=== PATIENT | female | born 1950 | race Caucasian/White ===

== ENCOUNTER 2021-04-01 06:42 | Day surgery (SDC) | payer MEDICARE ==
[2021-04-01] MEDS ORDERED: Propofol 200 MG/20 ML SDV ONE (07:13)
[2021-04-01] MEDS ORDERED: Midazolam 1 MG/ML 2 ML SDV ONE (07:14)
[2021-04-01] MEDS ORDERED: fentaNYL 100 MCG/2 ML SDV ONE (07:14)
[2021-04-01] MEDS ORDERED: Sodium Chloride 0.9% 1,000 ML IV SCH (07:30)
--- NOTE | 2021-04-01 16:40 | OR ---
DATE OF PROCEDURE: 04/01/2021 SURGEON: Osman Mills MD PROCEDURE: Colonoscopy. FINDINGS: 1. Diverticulosis, moderate, mostly limited to sigmoid colon. 2. Sigmoid colon polyp, approximately 5 mm, completely removed using cold biopsy forceps. COMPLICATIONS: None. COMPUTER LABORATORY TECHNICIAN: None. ANESTHESIA: MAC. PREOPERATIVE DIAGNOSIS: Screening colonoscopy. POSTOPERATIVE DIAGNOSIS: Screening colonoscopy. RISKS: Risks, benefits, alternatives, and limitations including, but not limited to infection, bleeding, perforation, false positives, false negatives were explained to the patient and she wished to proceed. PROCEDURE IN DETAIL: The patient was placed in left lateral decubitus position. Digital rectal exam was performed without abnormality. Scope was introduced and advanced atraumatically to the ileocecal valve. A photo was taken of this. Scope was brought back to the ascending, transverse, descending colon, and retroflexed. No evidence of old or new blood. No masses. No colitis. Greater than 8 minutes was spent removing the scope. The prep was acceptable. Approximately 85% of the luminal surface could be seen. The solid and liquid stool remaining. No abnormalities on retroflexion. The patient tolerated the procedure well. Osman Mills MD /[id number]
== END 2021-04-01 11:10 | disposition home or self-care (01) ==
LOC: JP.SDS 06:42
PROVIDERS: ATTEND Surgery
DX: Z12.11 Encounter for screening for malignant neoplasm of colon (principal); K63.5 Polyp of colon; Z88.2 Allergy status to sulfonamides
CPT/HCPCS: 45380; 88305; J2250; J2704; J3010; J7030

== ENCOUNTER 2022-03-22 11:39 | Emergency (ER) | payer MEDICARE ==
[2022-03-22 12:52] LABS: ESTIMATED GFR > 60 (>60)
[2022-03-22] MEDS ORDERED: Sodium Chloride 0.9% 75 ML IV SCH (13:30)
[2022-03-22] MEDS ORDERED: Iopamidol 612 MG/ML 100 ML Bottle IV SCH (13:30)
[2022-03-22] MEDS ORDERED: metroNIDAZOLE/Normal Saline 500 MG in Premix Bag 1 BAG IV ONE (14:50)
[2022-03-22] MEDS ORDERED: Levofloxacin/Dextrose 5%-Water 750 MG in Premix Bag 1 BAG IV ONE (14:50)
[2022-03-22] MEDS ORDERED: Sodium Chloride 0.9% 1,000 ML IV SCH (15:00)
== END 2022-03-22 17:21 | disposition home or self-care (01) ==
LOC: JP.ED 11:39
DX: K57.32 Diverticulitis of large intestine without perforation or abscess without bleeding (principal); E86.0 Dehydration; E78.00 Pure hypercholesterolemia, unspecified; K21.9 Gastro-esophageal reflux disease without esophagitis; Z88.2 Allergy status to sulfonamides; Z79.899 Other long term (current) drug therapy; Z87.891 Personal history of nicotine dependence
CPT/HCPCS: 36415; 74177; 80053; 81001; 85025; 86140; 96365; 96366; 96368; 99283; 99284; J1956; J3490; J7030; Q9967

== ENCOUNTER 2022-12-18 11:14 | Emergency (ER) | payer MEDICARE ==
[2022-12-18] MEDS ORDERED: fentaNYL 100 MCG/2 ML SDV IVPUSH ONE ×2 (12:42→16:00)
[2022-12-18] MEDS ORDERED: Sodium Chloride 0.9% 10 ML Syringe FLUSH PRN ×2 (12:42→12:55)
[2022-12-18] MEDS ORDERED: Sodium Chloride 0.9% 1,000 ML IV STA (12:42)
[2022-12-18] MEDS ORDERED: Iopamidol 612 MG/ML 100 ML Bottle IV PRN (12:55)
[2022-12-18] MEDS ORDERED: Sodium Chloride 0.9% 50 ML IV ONE (12:55)
[2022-12-18 13:17] LABS: ESTIMATED GFR 77 mL/min (>60); TROPONIN I HIGH SENSITIVITY 5.1 pg/mL (<=60.3)
== END 2022-12-18 16:22 | disposition home or self-care (01) ==
LOC: JP.ED 11:14
DX: K57.32 Diverticulitis of large intestine without perforation or abscess without bleeding (principal); E86.0 Dehydration; K21.9 Gastro-esophageal reflux disease without esophagitis; Z88.2 Allergy status to sulfonamides; Z79.899 Other long term (current) drug therapy
CPT/HCPCS: 36415; 74177; 80053; 81001; 83605; 83690; 84484; 85025; 96361; 96374; 96376; 99284; J3010; J3490; J7030; Q9967

== ENCOUNTER 2025-01-18 07:18 | Day surgery (SDC) | payer MEDICARE ==
[2025-01-18] MEDS ORDERED: fentaNYL 50 MCG/ML SDV ONE (07:21)
[2025-01-18] MEDS ORDERED: Propofol 200 MG/20 ML SDV ONE (07:21)
[2025-01-18] MEDS: Lactated Ringers 1,000 ML IV SCH (08:32)
== END 2025-01-18 11:33 | disposition home or self-care (01) ==
LOC: JP.SDS 07:18
PROVIDERS: ATTEND Surgery
DX: R13.10 Dysphagia, unspecified (principal); K44.9 Diaphragmatic hernia without obstruction or gangrene; I85.00 Esophageal varices without bleeding; K21.9 Gastro-esophageal reflux disease without esophagitis; K22.89 Other specified disease of esophagus; Z88.2 Allergy status to sulfonamides
CPT/HCPCS: 00731-QZ; 88305; J2704; J3010; J7120

== ENCOUNTER 2025-04-20 23:32 | Observation (INO) | payer MEDICARE ==
[2025-04-21 00:20] LABS: BASOPHILS PERCENT AUTO 0.3 % (0.1-1.3); EOSINOPHILS ABSOLUTE AUTO 0.03 K/uL (0.00-0.40); EOSINOPHILS PERCENT AUTO 0.4 % (0.0-5.4); IMMATURE GRAN ABSOLUTE AUTO 0.04 K/uL (0.00-0.23); IMMATURE GRAN PERCENT AUTO 0.5 % (0.0-0.7); LYMPHOCYTES ABSOLUTE AUTO 0.77 K/uL (0.8-3.3); LYMPHOCYTES PERCENT AUTO 9.7 % (11.4-47.7); MONOCYTES ABSOLUTE AUTO 0.47 K/uL (0.20-0.90); MONOCYTES PERCENT AUTO 5.9 % (3.3-12.6); NEUTROPHILS ABSOLUTE AUTO 6.58 K/uL (1.0-7.6); NEUTROPHILS PERCENT AUTO 83.2 % (40.0-78.1); PLATELET COUNT,PLT 84 K/uL (130-375); RED BLOOD CELL COUNT 3.71 M/uL (3.77-5.24); WHITE BLOOD CELL COUNT,WBC 7.9 K/uL (3.2-11.0)
[2025-04-21 00:23] LABS: BASOPHILS ABSOLUTE AUTO 0.02 K/uL (0.00-0.10)
[2025-04-21] MEDS: Lidocaine 1% with EPINEPHrine 1:100,000 20 ML MDV INJECT ONE (00:31)
[2025-04-21 00:44] LABS: A/G RATIO 1.3 (1.2-2.2); ALANINE AMINOTRANSFERASE,ALT 20 U/L (12-78); ASPARTATE AMNIOTRANSFERASE,AST 17 U/L (15-37); BILIRUBIN TOTAL 0.3 mg/dL (0.2-1.0); BLOOD UREA NITROGEN,BUN 35 mg/dL (7-18); CARBON DIOXIDE,CO2 26 mmol/L (21-32); CHLORIDE,CL 109 mmol/L (100-108); CREATININE 1.0 mg/dL (0.6-1.0); EST CRCL DRUG DOSING (CG) 46.54 mL/min; ESTIMATED GFR 58 mL/min (>60); GLUCOSE RANDOM 143 mg/dL (74-106); POTASSIUM,K 3.5 mmol/L (3.6-5.2); PROTEIN TOTAL,TP 6.1 g/dL (6.4-8.2); SODIUM,NA 144 mmol/L (140-148)
[2025-04-21 00:45] LABS: TROPONIN I HIGH SENSITIVITY < 4.0 pg/mL (<=60.3)
[2025-04-21] MEDS ORDERED: Ondansetron 4 MG Tab.DIS PO PRN (02:49)
[2025-04-21] MEDS ORDERED: Ondansetron 4 MG/2 ML SDV IV PRN (02:49)
[2025-04-21 06:05] LABS: PLATELET COUNT,PLT 89.0 K/uL (130-375); RED BLOOD CELL COUNT 3.76 M/uL (3.77-5.24); WHITE BLOOD CELL COUNT,WBC 7.4 K/uL (3.2-11.0)
[2025-04-21 06:25] LABS: BLOOD UREA NITROGEN,BUN 29.0 mg/dL (7-18); CARBON DIOXIDE,CO2 27.0 mmol/L (21-32); CHLORIDE,CL 110.0 mmol/L (100-108); CREATININE 0.8 mg/dL (0.6-1.0); EST CRCL DRUG DOSING (CG) 58.18 mL/min; ESTIMATED GFR 76.0 mL/min (>60); GLUCOSE RANDOM 107.0 mg/dL (74-106); POTASSIUM,K 4.1 mmol/L (3.6-5.2); SODIUM,NA 144.0 mmol/L (140-148)
[2025-04-21] MEDS: Lactobacillus Rhamnosus GG (Probiotic) Cap PO SCH (08:10)
[2025-04-21] MEDS: Cholecalciferol (Vitamin D3) 25 MCG Tab PO SCH ×2 (11:08→20:53)
[2025-04-21] MEDS: Fluticasone NASAL Spray 16 GM Bottle NASBOTH SCH (11:08)
[2025-04-21] MEDS: Amoxicillin/Clavulanate K 875-125 MG Tab PO SCH (11:08)
== END 2025-04-22 13:06 | disposition home or self-care (01) ==
LOC: JP.ED 23:32 → JP.MS 04-21 01:35
PROVIDERS: ADMIT Registered Nurse; ATTEND Hospitalist
DX: R55 Syncope and collapse (principal); E86.0 Dehydration; G30.1 Alzheimer's disease with late onset; F02.A0 Dementia in other diseases classified elsewhere, mild, without behavioral disturbance, psychotic disturbance, mood disturbance, and anxiety; T50.905A Adverse effect of unspecified drugs, medicaments and biological substances, initial encounter; E78.00 Pure hypercholesterolemia, unspecified; E78.5 Hyperlipidemia, unspecified; F41.1 Generalized anxiety disorder; F32.A Depression, unspecified; Z88.2 Allergy status to sulfonamides; Z79.899 Other long term (current) drug therapy
CPT/HCPCS: 12013; 36415; 70450; 73030; 80048; 80053; 84484; 85025; 85027; 86618; 87468; 87469; 87484; 87798; 93005; 93010; 99222; 99238; 99285; A9270; G0378; J2004

== ENCOUNTER 2025-06-26 07:27 | Day surgery (SDC) | payer MEDICARE ==
[~2025-06-26 07:27] MED LIST: Propofol 200 MG/20 ML SDV ONE; fentaNYL 50 MCG/ML SDV ONE
[2025-06-26] MEDS: Lactated Ringers 1,000 ML IV SCH (07:57)
== END 2025-06-26 11:00 | disposition home or self-care (01) ==
LOC: JP.SDS 07:27
PROVIDERS: ATTEND Surgery
DX: Z12.11 Encounter for screening for malignant neoplasm of colon (principal); D12.2 Benign neoplasm of ascending colon; K57.30 Diverticulosis of large intestine without perforation or abscess without bleeding; K21.9 Gastro-esophageal reflux disease without esophagitis; Z88.2 Allergy status to sulfonamides; Z79.899 Other long term (current) drug therapy
CPT/HCPCS: 00811; 45385; J2704; J3010; J7120; 88305